=== PATIENT | female | born 1940 | race Caucasian/White ===

== ENCOUNTER 2017-07-06 07:49 | Day surgery (SDC) | payer OTHER ==
[2017-07-06] MEDS ORDERED: EPINEPHRINE/PF 1 MG/ML AMP ONE (08:04)
[2017-07-06] MEDS ORDERED: NS 0.9% VIAL 10 ML ONE (08:04)
[2017-07-06] MEDS ORDERED: BALANCED SALT IRRIG PLAIN 500 ML BTL IRR ONE (08:04)
[2017-07-06] MEDS ORDERED: DUOVISC 1 KIT OPTH ONE (08:04)
[2017-07-06] MEDS ORDERED: MOXIFLOXACIN HCL 10 DROPS/ML **OR USE OPTH ONE (08:05)
[2017-07-06] MEDS ORDERED: LIDOCAINE 1% MPF 2 ML AMPULE ONE (08:05)
[2017-07-06] MEDS ORDERED: CYCLOPENTOLATE 1% OPTH 2 ML ONE (09:07)
[2017-07-06] MEDS ORDERED: BUPIVACAINE 0.25% PF 10 ML VIAL ONE (09:07)
[2017-07-06] MEDS ORDERED: NA CHLORIDE 0.9% 500 ML ONE (09:07)
[2017-07-06] MEDS ORDERED: TETRACAINE HCL 0.5% 2ML OPTH ONE (09:07)
[2017-07-06] MEDS ORDERED: PHENYLEPHRINE 10% OPTH 5ML ONE (09:07)
[2017-07-06] MEDS ORDERED: LIDOCAINE 2% MPF 5 ML VIAL ONE (09:07)
[2017-07-06] MEDS ORDERED: LIDOCAINE HCL/PF 3.5% OPTH GEL ONE (09:07)
[2017-07-06] MEDS ORDERED: PHENYLEPHRINE 10% OPTH 5ML OPTH ONE (09:28)
[2017-07-06] MEDS ORDERED: CYCLOPENTOLATE 1% OPTH 2 ML OPTH ONE ×3 (09:28→09:33)
[2017-07-06] MEDS ORDERED: MIDAZOLAM HCL 2 MG/2 ML INJ ONE (09:53)
[2017-07-06] MEDS ORDERED: FENTANYL CITR 100 MCG/2 ML ONE (09:53)
--- NOTE | 2017-07-06 10:59 | P.BOP ---
Preoperative diagnosis: Nuclear sclerotic cataract OD Postoperative diagnosis: Same Primary procedure: Phacoemulsification with IOL OD Estimated blood loss: None Anesthesia: Local (Topical with anesthesia for cataract surgery) Complications: None Implants: ZCB00 +23.5 Transferred to: Other (Day surgery) Condition: Good
--- NOTE | 2017-07-06 14:07 | OP ---
Date of Procedure: 07/06/2017 Surgeon: Clara Jerome MD Anesthesiologist: Luz Goodwin CRNA and Kong Harding M.D. Preoperative Diagnosis: Nuclear sclerotic cataract, OD (right eye). Operation Performed: Phacoemulsification with intraocular lens implant, OD ( right eye). Anesthesia: Per cataract surgery. Complications: None. Description Of Procedure: In the operating room the patient was prepped and draped in the usual sterile fashion for ophthalmic surgery. A lid speculum was placed in the right eye. Two paracentesis sites were made superiorly and inferiorly in the limbal cornea. Viscoat was placed in the anterior chamber and a crescent blade was used to make a corneal groove and tunnel, and a keratome was used to enter the anterior chamber. Provisc was placed in the anterior chamber and a 360 degree capsulotomy was performed with a cystitome. The lens was hydrodissected with BSS and rotated freely. The lens was removed with a stop and chop technique. A 11.88 Phaco CDE was used to remove the lens. Residual cortex was removed with the irrigation and aspiration. Provisc was placed in the capsular bag. A ZCB00 + 23.5 lens was placed in the capsular bag without complications. Irrigation and aspiration were used to remove residual viscoelastic. The paracentesis sites were hydrated with BSS. The wound and paracentesis sites were inspected and found to be watertight. Vigamox 0.07 cc was placed intracamerally at the end of the procedure. The eye was irrigated with balanced salt solution. The eye was patched with a soft cotton patch and Dumont metal shield. The patient was returned to day surgery in good condition. Comments: Akten was placed in the eye in Day Surgery and irrigated out of the eye with BSS in the OR. Preservative free 1% lidocaine was placed in the anterior chamber prior to Viscoat and prior to lens insertion. Discharge Instructions: Ms. David is discharged to home in good condition and is to follow up with Dr. Jerome in the morning. MECHELLE/TORRIE Voice ID: [id number] Report ID: [id number] MARGARET
== END 2017-07-06 11:40 | disposition home or self-care (01) ==
LOC: OR 07:49
PROVIDERS: ATTEND Ophthalmology Retina Specialist
PROC: 08RJ3JZ Replacement of Right Lens with Synthetic Substitute, Percutaneous Approach (ICD-10-PCS; principal; 2017-07-06 09:50)
DX: H25.11 Age-related nuclear cataract, right eye (principal); I10 Essential (primary) hypertension; I25.10 Atherosclerotic heart disease of native coronary artery without angina pectoris; Z88.1 Allergy status to other antibiotic agents; Z95.5 Presence of coronary angioplasty implant and graft; Z82.49 Family history of ischemic heart disease and other diseases of the circulatory system; Z83.3 Family history of diabetes mellitus; Z83.518 Family history of other specified eye disorder
CPT/HCPCS: 66984; J0171; J2001; J2250; J3010

== ENCOUNTER 2017-09-21 07:02 | Day surgery (SDC) | payer OTHER ==
[2017-09-21] MEDS ORDERED: BUPIVACAINE 0.25% PF 10 ML VIAL ONE (07:51)
[2017-09-21] MEDS ORDERED: LIDOCAINE 2% MPF 5 ML VIAL ONE (07:51)
[2017-09-21] MEDS ORDERED: TETRACAINE HCL 0.5% 2ML OPTH ONE (07:51)
[2017-09-21] MEDS ORDERED: CEFAZOLIN/SWI 1gm 1 GM/10 ML SYR ONE (07:52)
[2017-09-21] MEDS ORDERED: LIDOCAINE HCL/PF 3.5% OPTH GEL ONE (07:53)
[2017-09-21] MEDS: NA CHLORIDE 0.9% 500 ML ONE ×2 (08:00→08:50)
[2017-09-21] MEDS ORDERED: NS 0.9% VIAL 10 ML ONE (08:06)
[2017-09-21] MEDS ORDERED: BALANCED SALT IRRIG PLAIN 500 ML BTL IRR ONE (08:07)
[2017-09-21] MEDS ORDERED: DUOVISC 1 KIT OPTH ONE (08:07)
[2017-09-21] MEDS ORDERED: EPINEPHRINE/PF 1 MG/ML AMP ONE (08:07)
[2017-09-21] MEDS ORDERED: MOXIFLOXACIN HCL 10 DROPS/ML **OR USE OPTH ONE (08:07)
[2017-09-21] MEDS ORDERED: LIDOCAINE 1% MPF 2 ML AMPULE ONE (08:07)
[2017-09-21] MEDS: CYCLOPENTOLATE 1% OPTH 2 ML ONE ×3 (08:30→08:40)
[2017-09-21] MEDS ORDERED: FENTANYL CITR 100 MCG/2 ML ONE (09:11)
[2017-09-21] MEDS ORDERED: MIDAZOLAM HCL 2 MG/2 ML INJ ONE (09:11)
--- NOTE | 2017-09-21 09:46 | P.BOP ---
Preoperative diagnosis: Nuclear sclerotic cataract OS Postoperative diagnosis: Same Primary procedure: Phacoemulsification with IOL OS Estimated blood loss: None Anesthesia: Local (Topical with anesthesia for cataract surgery) Complications: None Implants: ZCB00 +24.5 Transferred to: Other (Day surgery) Condition: Good
--- NOTE | 2017-09-21 17:26 | OP ---
Date of Procedure: 09/21/2017 Surgeon: Clara Jerome MD Anesthesiologist: 1. Luz Escalante CRNA. 2. Jason Constantino M.D. Preoperative Diagnosis: Nuclear sclerotic cataract, left eye. Operation Performed: Phacoemulsification with intraocular lens implant, left eye. Anesthesia: per cataract surgery. Complications: None Description Of Procedure: In the operating room the patient was prepped and draped in the usual sterile fashion for ophthalmic surgery. A lid speculum was placed in the left eye. Two paracentesis sites were made superiorly and inferiorly in the limbal cornea. Viscoat was placed in the anterior chamber and a crescent blade was used to make a corneal groove and tunnel, and a keratome was used to enter the anterior chamber. Provisc was placed in the anterior chamber and a 360 degree capsulotomy was performed with a cystitome. The lens was hydrodissected with BSS and rotated freely. The lens was removed with a stop and chop technique. 13.94 phaco CDE was used to remove the lens. Residual cortex was removed with the irrigation and aspiration. Provisc was placed in the capsular bag. A ZCB00 +24.5 lens was placed in the capsular bag without complications. Irrigation and aspiration was used to remove residual viscoelastic. The paracentesis sites were hydrated with BSS. The wound and paracentesis sites were inspected and found to be watertight. Vigamox 0.07 cc was placed intracamerally at the end of the procedure. The eye was irrigated with balanced salt solution. The eye was patched with a soft cotton patch and Dumont metal shield. The patient was returned to day surgery in good condition. Comments: Aktin was placed in the eye in Day Surgery and irrigated out of the eye with BSS in the OR. Preservative free 1% lidocaine was placed in the anterior chamber prior to Viscoat. Discharge Instructions: Ms. David is discharged to home in good condition. She is to follow up with Dr. Jerome in the morning. MECHELLE/TORRIE Voice ID: [id number] Report ID: [id number] MARGARET
== END 2017-09-21 10:10 | disposition home or self-care (01) ==
LOC: OR 07:02
PROVIDERS: ATTEND Ophthalmology Retina Specialist
PROC: 08RK3JZ Replacement of Left Lens with Synthetic Substitute, Percutaneous Approach (ICD-10-PCS; principal; 2017-09-21 09:00)
DX: H25.12 Age-related nuclear cataract, left eye (principal); I10 Essential (primary) hypertension; Z95.5 Presence of coronary angioplasty implant and graft; Z88.1 Allergy status to other antibiotic agents; Z88.6 Allergy status to analgesic agent; Z90.49 Acquired absence of other specified parts of digestive tract; Z79.82 Long term (current) use of aspirin; Z83.518 Family history of other specified eye disorder; Z83.3 Family history of diabetes mellitus; Z82.49 Family history of ischemic heart disease and other diseases of the circulatory system
CPT/HCPCS: 66984; J0171; J0690; J2001; J2250; J3010

== ENCOUNTER 2021-02-04 06:28 | Day surgery (SDC) | payer OTHER ==
[2021-01-31 09:24] LABS: BUN Blood Urea Nitrogen 11 mg/dL (7-18); Bicarbonate 28 mmol/L (21-32); Glucose Level 103 mg/dL (74-106); Hematocrit 43.1 % (36.0-45.0); Lymphocytes % 27.1 % (15.3-44.8); MPV 7.6 fL (7.6-11.3); Potassium 3.9 mmol/L (3.5-5.1); RBC Red Blood Cell Count 4.67 M/uL (3.86-4.86); Sodium Level 140 mmol/L (136-145)
[2021-01-31 09:25] LABS: Absolute Lymphocytes (CBC) 1.6 K/uL (0.7-4.9); Basophils % 0.8 % (0-1.3)
[2021-01-31 09:29] LABS: Protime INR 0.99
--- NOTE | 2021-01-31 09:48 | RAD REPORT ---
EXAM DESCRIPTION: RAD - Chest Pa And Lat (2 Views) - 01/31/2021 9:14 am CLINICAL HISTORY: Pre op pending heart cath COMPARISON: April 2011 TECHNIQUE: Frontal and lateral views of the chest were obtained. FINDINGS: The lungs are clear. Interstitial pattern matches comparison. Hilar regions also match co mparison. Heart size is normal and central vasculature is within normal limits. No pleural effusion or pneumothorax seen. No acute bony finding noted. No aortic abnormality. IMPRESSION: No acute cardiopulmonary process.
[2021-02-04] MEDS ORDERED: HEPA 1000U/500MLS 1,000 UNIT/500 ML BAG IV ONE ×2 (07:01→07:23)
[2021-02-04] MEDS ORDERED: NA CHLORIDE 0.9% 100 ML IV ONE (07:02)
[2021-02-04] MEDS ORDERED: NA CHLORIDE 0.9% 500 ML ONE (07:03)
[2021-02-04] MEDS ORDERED: MIDAZOLAM HCL 2 MG/2 ML INJ ONE (07:21)
[2021-02-04] MEDS ORDERED: FENTANYL CITR 100 MCG/2 ML ONE (07:21)
[2021-02-04] MEDS ORDERED: ATROPINE SULF 1 MG/10 ML SYR IV ONE (07:22)
[2021-02-04] MEDS ORDERED: NA CHLORIDE 0.9% 0 ML ONE (07:22)
[2021-02-04] MEDS ORDERED: HEPARIN 5000 UNIT/ML 1 ML VIAL ONE (08:01)
--- NOTE | 2021-02-04 09:06 | OP ---
Surgeon: Usman Stoddard MD Quarry Worker: Dahiana Espinal. The patient will be in the hospital for about 2 hours of bedrest. She can go home later and I will m gene arrangements for her CD review and followup down the road. Reason For Admission: Aortic stenosis, cerebrovascular disease, coronary artery disease. Procedures: The patient underwent left heart catheterization, selective coronary arteriogram, select daryl bilateral carotid angiogram. Right heart catheterization with cardiac output measurements and O2 saturation measurements. Description Of Procedure: Ms. David was brought to the landscape lab[facility] as an outpatient, prepped and aquilino ped in routine sterile fashion. Given Versed and fentanyl for sedation. A 6-Pu[place]ican sheath was intro duced in the right common femoral artery. A 7-[place] sheath introduced in the right common femoral v ein. Left heart catheterization showed a 70% RCA proximal stenosis, 60% mid RCA after an old stent. The stent in the RCA was open, the PDA had about an 80% stenosis. She was very right dominant. Cir cumflex was normal, but small. Left main was normal. She had a stent in the LAD that was patent. A fter the stent, she had 2 stenoses of about 50% to 60% each. The carotid angiogram showed normal com mon carotid. She had a 70% stenosis in the right ICA, otherwise was normal. Right heart catheteriza tion showed a cardiac output of 4.4 L/minute. Right atrial pressure of 8/4, her PA was 45, RV was 45 systolic, her wedge was 26. These values were obtained after introducing a Onekama-Julien catheter and a 7-Puerto Rican sheath all the way from the right atrium to the right ventricle, pulmonary artery, and wedg e pressure. Cardiac output with measurement at the PA level at 4.4 L a minute using thermodilution. O2 saturation was pending. There were no complications. Blood Loss: 5 cc. 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 Plan: To review the film with CV surgery in [place] before making decisions on the outcome. RUBEN/TORRIE Voice ID: [id number] Report ID: [id number]
[2021-02-04 09:27] VITALS: TEMP 97.7
[2021-02-04 10:17] VITALS: BP 134/68; O2SAT 97
== END 2021-02-04 10:20 | disposition home or self-care (01) ==
LOC: CCL 06:28
DX: I65.21 Occlusion and stenosis of right carotid artery (principal); I25.10 Atherosclerotic heart disease of native coronary artery without angina pectoris; I35.0 Nonrheumatic aortic (valve) stenosis; I10 Essential (primary) hypertension; I27.20 Pulmonary hypertension, unspecified; E78.2 Mixed hyperlipidemia; Z95.5 Presence of coronary angioplasty implant and graft; Z20.822 Contact with and (suspected) exposure to COVID-19; Z01.810 Encounter for preprocedural cardiovascular examination
CPT/HCPCS: 36222; 36415; 71046; 80048; 85025; 85610; 85730; 93456; C1893; J0583; J1644; J2250; J3010; J7040; U0002